=== PATIENT | male | born 1970 | race Caucasian/White ===

== ENCOUNTER 2023-01-30 09:53 | Emergency (ER) | payer MEDICAID ==
[~2023-01-30] VITALS: Ht 170.2 cm; Wt 65.0 kg
[2023-01-30 10:02] VITALS: BP 182/99; TEMP 97.6
[2023-01-30] MEDS ORDERED: dexamethasone 4mg tablet PO ONE (11:10)
[2023-01-30] MEDS ORDERED: ipratropium/albuterol 3ml nebule NEB ONE (11:10)
[2023-01-30] MEDS ORDERED: ALB0.5UD IH (11:14)
[2023-01-30] MEDS ORDERED: ALBU6.7H14 INH (11:14)
[2023-01-30 11:25] VITALS: PULSE 66; RESP 22; O2SAT 97
[2023-01-30 11:34] VITALS: PULSE 69; RESP 22
== END 2023-03-02 07:53 | disposition home or self-care (01) ==
LOC: ER 09:53
DX: J44.1 Chronic obstructive pulmonary disease with (acute) exacerbation (principal); I10 Essential (primary) hypertension; F17.200 Nicotine dependence, unspecified, uncomplicated; Z79.899 Other long term (current) drug therapy
CPT/HCPCS: 94640; 94760; 99283

== ENCOUNTER 2023-07-05 07:36 | Emergency (ER) | payer MEDICAID ==
[~2023-07-05] VITALS: Ht 167.6 cm; Wt 64.9 kg
[~2023-07-05 07:36] MED LIST: ALBU6.7H14 INH
[2023-07-05 07:44] VITALS: TEMP 97.8
[2023-07-05] MEDS ORDERED: ipratropium/albuterol 3ml nebule NEB ONE ×2 (08:25→12:40)
[2023-07-05] MEDS ORDERED: methylPREDNISolone sod succ 125mg/2ml vial IV ONE (08:25)
[2023-07-05] MEDS ORDERED: dexamethasone 4mg tablet PO ONE (08:30)
[2023-07-05 08:33] LABS: BASOPHILS # (AUTO) 0.1 X10'3 (0-0.2); EOSINOPHILS # (AUTO) 0.2 X10'3 (0-0.9); EOSINOPHILS % (AUTO) 3.3 % (0-6); LYMPHOCYTES # (AUTO) 2.4 X10'3 (1.1-4.8); MONOCYTES % (AUTO) 15.4 % (2-12); NEUTROPHILS # (AUTO) 2.9 X10'3 (1.8-7.7); WHITE BLOOD COUNT 6.6 X10'3 (4.5-11.0)
[2023-07-05 08:35] LABS: HEMATOCRIT 54.4 % (42.0-52.0); LYMPHOCYTES % (AUTO) 36.2 % (21-51); MEAN CORPUSCULAR HEMOGLOBIN 31.6 PG (27.0-31.0); MEAN CORPUSCULAR VOLUME 92.7 FL (78-98); MEAN PLATELET VOLUME 8.5 FL (7.4-10.4); NEUTROPHILS % (AUTO) 44.1 % (42-75); PLATELET COUNT 234 X10'3 (140-440); RED BLOOD COUNT 5.86 X10'6 (4.70-6.10)
[2023-07-05 08:40] LABS: HEMOGLOBIN 18.5 g/dl (14.0-17.9)
[2023-07-05 08:44] VITALS: PULSE 63; PULSE 66; RESP 17; RESP 18; O2SAT 93
[2023-07-05] MEDS ORDERED: DOXYCYCLINE 100MG CAPSULE PO STA (08:46)
[2023-07-05 08:55] LABS: ALANINE AMINOTRANSFERASE 74 U/L (12-78); ALBUMIN 3.9 G/DL (3.4-5.0); ALKALINE PHOSPHATASE 77 IU/L (46-116); ANION GAP 10 (8-16); ASPARTATE AMINO TRANSFERASE 52 U/L (10-37); BILIRUBIN,TOTAL 0.5 MG/DL (0.1-1.0); BLOOD UREA NITROGEN 19 MG/DL (7-18); BUN/CREATININE RATIO 17.4 (10.0-20.0); CALCIUM 9.4 MG/DL (8.5-10.1); CHLORIDE 102 MMOL/L (99-107); CREATININE 1.09 MG/DL (0.60-1.10); GLUCOSE 68 MG/DL (70-104); POTASSIUM 4.2 MMOL/L (3.5-5.1); SODIUM 136 MMOL/L (135-145); TOTAL CARBON DIOXIDE 24.3 MMOL/L (24-32); eCRCL 70 ML/MIN; eGFR 70 ML/MIN
[2023-07-05 08:59] LABS: LARGE PLATELETS FEW; PLATELET ESTIMATE NORMAL; SMUDGE CELLS FEW; TOTAL CELLS COUNTED 100
[2023-07-05 09:02] LABS: PRO BRAIN NATRIURETIC PEPTIDE 148 PG/ML (0-125)
[2023-07-05] MEDS: albuterol 2.5 MG/3 ML nebule CONTNEB PRN ×2 (09:53→13:39)
[2023-07-05 09:56] VITALS: PULSE 63; RESP 16; O2SAT 93
[2023-07-05 10:50] VITALS: PULSE 90; RESP 20; O2SAT 92
[2023-07-05] MEDS ORDERED: albuterol 2.5 MG/3 ML nebule CONTNEB PRN (12:40)
[2023-07-05 13:44] VITALS: PULSE 86; RESP 18; O2SAT 93
[2023-07-05] MEDS ORDERED: FLUT1BLS16 INH (14:29)
[2023-07-05] MEDS ORDERED: PRED20TA PO (14:29)
[2023-07-05] MEDS ORDERED: DOXY-1 PO (14:29)
[2023-07-05 14:40] VITALS: BP 140/74; PULSE 74; RESP 16; O2SAT 97
== END 2023-07-05 14:34 | disposition home or self-care (01) ==
LOC: ER 07:36
DX: J45.901 Unspecified asthma with (acute) exacerbation (principal); I10 Essential (primary) hypertension; Z79.899 Other long term (current) drug therapy
CPT/HCPCS: 36415; 71045; 80053; 82948; 83880; 84484; 85007; 85025; 93005; 94640; 94644; 94645; 94760; 99291; A4615; A7015

== ENCOUNTER 2023-12-10 07:47 | Emergency (ER) | payer MEDICAID ==
[~2023-12-10] VITALS: Ht 170.2 cm; Wt 64.8 kg
[~2023-12-10 07:47] MED LIST changes: +FLUT1BLS16 INH
[2023-12-10 08:14] LABS: BILIRUBIN,URINE NEGATIVE (Neg); CLARITY,URINE CLEAR (Clear); COLOR,URINE YELLOW (Yellow); GLUCOSE, URINE NEGATIVE (Neg); KETONES,URINE NEGATIVE (Neg); LEUKOCYTE ESTERASE ,URINE NEGATIVE (Neg); NITRITES, URINE NEGATIVE (Neg); OCCULT BLOOD,URINE NEGATIVE (Neg); PH,URINE 5.5 (4.8-8.0); PROTEIN,URINE NEGATIVE (Neg); UROBILINOGEN,URINE 0.2 E.U/dL (0.2-1.0)
[2023-12-10 08:16] LABS: UA COLLECTION TYPE CLN CATCH MIDSTREAM
[2023-12-10 08:54] LABS: BASOPHILS % (AUTO) 0.6 % (0-1); EOSINOPHILS # (AUTO) 0.3 X10'3 (0-0.9); EOSINOPHILS % (AUTO) 3.7 % (0-6); HEMATOCRIT 46.9 % (42.0-52.0); HEMOGLOBIN 15.7 g/dl (14.0-17.9); LYMPHOCYTES # (AUTO) 1.7 X10'3 (1.1-4.8); MEAN CORPUSCULAR HEMOGLOBIN 32.2 PG (27.0-31.0); MEAN CORPUSCULAR HGB CONC 33.5 g/dL (33.0-36.5); MEAN PLATELET VOLUME 7.9 FL (7.4-10.4); MONOCYTES # (AUTO) 0.9 X10'3 (0-0.9); MONOCYTES % (AUTO) 12.9 % (2-12); NEUTROPHILS # (AUTO) 4.4 X10'3 (1.8-7.7); NEUTROPHILS % (AUTO) 59.8 % (42-75); PLATELET COUNT 254 X10'3 (140-440); RED BLOOD COUNT 4.88 X10'6 (4.70-6.10); WHITE BLOOD COUNT 7.3 X10'3 (4.5-11.0)
[2023-12-10 09:01] LABS: ALANINE AMINOTRANSFERASE 67 U/L (12-78); ALBUMIN 3.5 G/DL (3.4-5.0); ALBUMIN/GLOBULIN RATIO 0.9 (1.1-1.5); ALKALINE PHOSPHATASE 72 IU/L (46-116); ANION GAP 8 (8-16); ASPARTATE AMINO TRANSFERASE 37 U/L (10-37); BILIRUBIN,TOTAL 0.3 MG/DL (0.1-1.0); BLOOD UREA NITROGEN 15 MG/DL (7-18); BUN/CREATININE RATIO 14.2 (10.0-20.0); CALCIUM 9.2 MG/DL (8.5-10.1); CHLORIDE 103 MMOL/L (99-107); CREATININE 1.06 MG/DL (0.60-1.10); GLUCOSE 88 MG/DL (70-104); LIPASE 95 U/L (16-77); POTASSIUM 3.8 MMOL/L (3.5-5.1); SODIUM 140 MMOL/L (135-145); TOTAL CARBON DIOXIDE 29.4 MMOL/L (24-32); TOTAL PROTEIN 7.5 G/DL (6.4-8.2); eCRCL 72 ML/MIN; eGFR 73 ML/MIN
[2023-12-10] MEDS ORDERED: DOXY150T3 PO (09:22)
[2023-12-10] MEDS ORDERED: AMLO5TAB16 PO (09:36)
[2023-12-10] MEDS ORDERED: BUDE10.7 (09:36)
[2023-12-10] MEDS: ketorolac tromethamine 15mg/ml inj. IM ONE (09:44)
[2023-12-10 11:39] VITALS: BP 161/99; PULSE 64; RESP 16; TEMP 98; O2SAT 97
== END 2023-12-10 11:30 | disposition home or self-care (01) ==
LOC: ER 07:48
DX: T81.49XA Infection following a procedure, other surgical site, initial encounter (principal); I10 Essential (primary) hypertension; J45.909 Unspecified asthma, uncomplicated; Z79.899 Other long term (current) drug therapy; Y92.89 Other specified places as the place of occurrence of the external cause
CPT/HCPCS: 36415; 80053; 81003; 83690; 85025; 96372; 99283; J1885